=== PATIENT | female | born 1990 | race African-American/Black ===

== ENCOUNTER 2022-09-16 20:19 | Emergency (ER) | payer OTHER ==
[~2022-09-16] VITALS: Ht 175.3 cm; Wt 61.8 kg
[~2022-09-16 20:19] MED LIST: IBUP80TA PO; MAPA500T2 PO; PRENTAB52 PO
[2022-09-16 20:20] VITALS: BP 126/58; TEMP 99.4; O2SAT 99
== END 2022-09-17 00:10 | disposition left against medical advice (07) ==
LOC: M ED 20:19
DX: Z53.21 Procedure and treatment not carried out due to patient leaving prior to being seen by health care provider (principal)

== ENCOUNTER 2023-08-20 08:30 | Emergency (ER) | payer OTHER ==
[~2023-08-20] VITALS: Ht 175.3 cm; Wt 63.8 kg
[2023-08-20 11:47] LABS: BASO % 0.9 % (0.0-1.0); EOS # 0.2 10^3/uL (0.0-0.5); EOS % 4.4 % (0.0-3.0); HEMATOCRIT 40.8 % (36.0-47.0); HEMOGLOBIN 13.7 g/dl (12.0-15.5); LYMPH # 2.3 10^3/uL (1.5-5.0); LYMPH % 49.2 % (24.0-44.0); MEAN CORPUSCULAR HEMOGLOBIN 29.5 pg (27.0-33.0); MEAN CORPUSCULAR HGB CONC 33.6 g/dl (32.0-36.5); MEAN CORPUSCULAR VOLUME 87.9 fl (80.0-96.0); MONO # 0.3 10^3/uL (0.0-0.8); MONO % 7.4 % (2.0-8.0); NEUTROPHILS # 1.7 10^3/uL (1.5-8.5); NEUTROPHILS % 37.9 % (36.0-66.0); PLATELET COUNT, AUTOMATED 241 10^3/uL (150-450); RED BLOOD COUNT 4.64 10^6/uL (4.00-5.40); WHITE BLOOD COUNT 4.6 10^3/uL (4.0-10.0)
[2023-08-20 12:15] LABS: BLOOD UREA NITROGEN 12 MG/DL (9-23); CALCIUM LEVEL 9.5 MG/DL (8.5-10.1); CARBON DIOXIDE LEVEL 25 MMOL/L (20-31); CHLORIDE LEVEL 106 MMOL/L (98-107); CREATININE FOR GFR 0.85 MG/DL (0.55-1.30); GLOMERULAR FILTRATION RATE > 60.0 (>60); GLUCOSE, FASTING 78 MG/DL (60-100); POTASSIUM SERUM 4.4 MMOL/L (3.5-5.1); SODIUM LEVEL 137 MMOL/L (136-145)
[2023-08-20 13:13] LABS: Trichomonas vaginalis (AMP) NOT DETECTED (NEGATIVE)
[2023-08-20 13:37] LABS: GC DNA AMPLIFICATION NEGATIVE (NEGATIVE)
[2023-08-20] MEDS ORDERED: ANUS2.5C2 TOP (13:38)
[2023-08-20 13:47] VITALS: BP 117/59; TEMP 98.3; O2SAT 98
== END 2023-08-20 13:54 | disposition home or self-care (01) ==
LOC: M ED 08:30
DX: N93.8 Other specified abnormal uterine and vaginal bleeding (principal); L29.0 Pruritus ani

== ENCOUNTER 2024-06-09 10:44 | Day surgery (SDC) | payer OTHER ==
[~2024-06-09] VITALS: Ht 175.3 cm; Wt 65.8 kg
[~2024-06-09 10:44] MED LIST changes: +ANUS2.5C2 TOP
[2024-06-09] MEDS ORDERED: LR 1,000 ML IV SCH ×2 (11:25→13:10)
[2024-06-09] MEDS ORDERED: ONDANSETRON 4MG 2ML VIAL As Ordered ONE (11:53)
[2024-06-09] MEDS ORDERED: LIDOCAINE 2% 100MG/5ML SDV (FOR ANES.) As Ordered ONE (11:54)
[2024-06-09] MEDS ORDERED: propofoL 200 MG/20 ML VIAL As Ordered ONE (11:54)
[2024-06-09] MEDS ORDERED: fentaNYL 100 MCG/2 ML INJECTION As Ordered ONE (12:20)
[2024-06-09] MEDS ORDERED: ROCURONIUM BROMIDE 50MG/5ML VIAL As Ordered ONE (12:20)
[2024-06-09] MEDS ORDERED: MIDAZOLAM INJ 2MG/2ML VIAL As Ordered ONE (12:21)
[2024-06-09] MEDS ORDERED: ACETAMINOPHEN 1000MG/100ML IV BAG As Ordered ONE (12:22)
[2024-06-09] MEDS ORDERED: SUGAMMADEX SODIUM 500 MG/5 ML VIAL (BRIDION) As Ordered ONE (12:24)
[2024-06-09] MEDS ORDERED: ONDANSETRON 4MG 2ML VIAL IV PRN (13:10)
[2024-06-09] MEDS ORDERED: HYDROMORPHONE HCL 0.5 MG/ 0.5 ML SYRINGE IV PRN (13:10)
[2024-06-09] MEDS ORDERED: fentaNYL 100 MCG/2 ML INJECTION IV PRN (13:10)
[2024-06-09] MEDS: oxyCODONE 5MG TAB PO PRN (13:51)
[2024-06-09 14:16] VITALS: BP 115/56; TEMP 97.6; O2SAT 99
== END 2024-06-09 14:45 | disposition home or self-care (01) ==
LOC: M SDC 10:44
PROVIDERS: ATTEND Otolaryngology
DX: J35.01 Chronic tonsillitis (principal); J35.8 Other chronic diseases of tonsils and adenoids
CPT/HCPCS: 42826; 81025; 88302; J0131; J1100; J2250; J2405; J3010

== ENCOUNTER 2024-06-11 08:31 | Emergency (ER) | payer OTHER ==
[~2024-06-11] VITALS: Ht 175.3 cm; Wt 68.7 kg
[2024-06-11] MEDS ORDERED: IBUP100S65 (08:44)
[2024-06-11] MEDS ORDERED: HYDROCOD (08:44)
[2024-06-11] MEDS ORDERED: ACETAMIN (08:44)
[2024-06-11] MEDS ORDERED: fentaNYL 100 MCG/2 ML INJECTION IV ONE (09:20)
[2024-06-11] MEDS: dexAMETHasone 20MG/5ML VIAL IV ONE (09:35)
[2024-06-11] MEDS: NS (Normal Saline) 0.9% 1,000 ML IV ONE (09:35)
[2024-06-11] MEDS: diphenhydrAMINE 50MG/ML VIAL IV STA (09:35)
[2024-06-11] MEDS: ACETAMINOPHEN *IV* 1,000 MG in IV 1 EA IV ONE (09:49)
[2024-06-11 10:23] LABS: BLOOD UREA NITROGEN 10 MG/DL (9-23); CALCIUM LEVEL 9.1 MG/DL (8.5-10.1); CARBON DIOXIDE LEVEL 29 MMOL/L (20-31); CHLORIDE LEVEL 102 MMOL/L (98-107); CREATININE FOR GFR 0.85 MG/DL (0.55-1.30); GLOMERULAR FILTRATION RATE > 60.0 (>60); GLUCOSE, FASTING 85 MG/DL (60-100); POTASSIUM SERUM 3.7 MMOL/L (3.5-5.1); SODIUM LEVEL 140 MMOL/L (136-145)
[2024-06-11] MEDS ORDERED: MAGICMW SS (11:04)
[2024-06-11] MEDS ORDERED: ACET160S3 PO (11:06)
[2024-06-11 11:17] VITALS: BP 115/59; TEMP 97.3; O2SAT 97
== END 2024-06-11 11:23 | disposition home or self-care (01) ==
LOC: M ED 08:31
DX: T78.40XA Allergy, unspecified, initial encounter (principal); H02.841 Edema of right upper eyelid; H02.844 Edema of left upper eyelid
CPT/HCPCS: 80048; 96365; 96375; 99284; J0131; J1100; J1200